=== PATIENT | male | born 1970 | race Caucasian/White ===

== ENCOUNTER 2018-09-03 07:43 | Emergency (ER) | payer OTHER ==
--- NOTE | 2018-09-03 08:20 | RADIOLOGY REPORT (SQ) ---
EXAM DESCRIPTION: CHEST SINGLE VIEW COMPLETED DATE/TIME: 09/03/2018 8:00 am REASON FOR STUDY: syncope and fall COMPARISON: None. EXAM PARAMETERS: NUMBER OF VIEWS: One view. TECHNIQUE: Single frontal radiographic view of the chest acquired. RADIATION DOSE: NA LIMITATIONS: None. FINDINGS: LUNGS AND PLEURA: Mild basilar atelectasis/ scarring. No opacities, masses or pneumothora x. No pleural effusion. MEDIASTINUM AND HILAR STRUCTURES: No masses. Contour normal. HEART AND VASCULAR STRUCTURES: Heart normal in size. Normal vasculature. BONES: No acute findings. HARDWARE: None in the chest. OTHER: No other significant finding. IMPRESSION: NO ACUTE RADIOGRAPHIC FINDING IN THE CHEST. TECHNICAL DOCUMENTATION: JOB ID: [id number] [employer]- All Rights Reserved Reading location - IP/workstation name: [email or web address]
[2018-09-03 08:21] LABS: HEMATOCRIT 31.8 % (37.9-51.0); MEAN CORPUSCULAR HEMOGLOBIN 36.8 pg (27.0-33.4); MEAN CORPUSCULAR HGB CONC 34.5 g/dL (32.0-36.0); MEAN CORPUSCULAR VOLUME 107 fl (80-97); RED BLOOD COUNT 2.98 10^6/uL (4.35-5.55); RED CELL DISTRIBUTION WIDTH 14.8 % (11.5-14.0); WHITE BLOOD COUNT 9.9 10^3/uL (4.0-10.5)
[2018-09-03 08:24] LABS: INTERNATIONAL RATION (INR) 1.64; PROTHROMBIN TIME 20.2 SEC (11.4-15.4)
[2018-09-03 08:26] LABS: PARTIAL THROMBOPLASTIN TIME 40.2 SEC (23.5-35.8)
[2018-09-03 08:39] LABS: PLATELET COUNT 52 10^3/uL (150-450)
[2018-09-03 08:41] LABS: ABSOLUTE LYMPHOCYTES# (MANUAL) 0.5 10^3/uL (0.5-4.7); ABSOLUTE MONOCYTES # (MANUAL) 0.6 10^3/uL (0.1-1.4); ABSOLUTE NEUTROPHILS# (MANUAL) 8.8 10^3/uL (1.7-8.2); BAND NEUTROPHILS % (MANUAL) 3 % (3-5); BASOPHILS % (MANUAL) 0 % (0-2); EOSINOPHILS % (MANUAL) 0 % (0-6); LYMPHOCYTES % (MANUAL) 5 % (13-45); MONOCYTES % (MANUAL) 6 % (3-13); NUCLEATED RED BLOOD CELLS 2 /100 WBC (0); SEGMENTED NEUTROPHILS % (MAN) 86 % (42-78); TOTAL CELLS COUNTED 100
[2018-09-03 08:42] LABS: ALANINE AMINOTRANSFERASE 41 U/L (21-72); ALBUMIN 3.6 g/dL (3.5-5.0); ALKALINE PHOSPHATASE 61 U/L (38-126); ASPARTATE AMINO TRANSFERASE 172 U/L (17-59); BILIRUBIN,DIRECT 11.1 mg/dL (0.0-0.4); BILIRUBIN,TOTAL 12.5 mg/dL (0.2-1.3); BLOOD UREA NITROGEN 46 mg/dL (7-20); CALCIUM 7.3 mg/dL (8.4-10.2); GLUCOSE 68 mg/dL (75-110); LIPASE 730.1 U/L (23-300); POTASSIUM 3.3 mmol/L (3.6-5.0); TOTAL PROTEIN 6.9 g/dL (6.3-8.2)
[2018-09-03 08:46] LABS: ANISOCYTOSIS SLIGHT; PLATELET COMMENT DECREASED; TOXIC GRANULATION 1+; TOXIC VACUOLATION PRESENT
[2018-09-03 08:49] LABS: CARBON DIOXIDE 12 mmol/L (22-30); CHLORIDE 83 mmol/L (98-107); SODIUM 129.5 mmol/L (137-145)
[2018-09-03 08:51] LABS: ACETAMINOPHEN < 10 ug/mL (10-30); ALCOHOL < 10 mg/dL (NONE DETECTED); ANION GAP 35 (5-19)
--- NOTE | 2018-09-03 08:58 | RADIOLOGY REPORT (SQ) ---
EXAM DESCRIPTION: CT CERVICAL SPINE WITHOUT COMPLETED DATE/TIME: 09/03/2018 8:43 am REASON FOR STUDY: fall COMPARISON: None. TECHNIQUE: Axial images acquired through the cervical spine without intravenous contrast. Images re viewed with lung, soft tissue and bone windows. Reconstructed coronal and sagittal MPR images review ed. Images stored on PACS. All CT scanners at this facility use dose modulation, iterative reconstruction, and/or weight based d osing when appropriate to reduce radiation dose to as low as reasonably achievable (ALARA). [facility]: Dose Right [facility]: CareDose [facility]: Dose Right [facility]: Teradose 4D [facility]: Smart [employer] RADIATION DOSE: CT Rad equipment meets quality standard of care and radiation dose reduction techniq ues were employed. CTDIvol: 20.4 mGy. DLP: 384 mGy-cm. mGy. LIMITATIONS: None. FINDINGS: ALIGNMENT: Anatomic. MINERALIZATION: Normal. VERTEBRAL BODIES: No fractures or dislocation. DISCS: Mild disc space narrowing and small osteophytes in the lower cervical spine. FACETS, LATERAL MASSES, POSTERIOR ELEMENTS: Mild facet arthropathy. No fractures. No dislocation. No acute findings. HARDWARE: None in the spine. VISUALIZED RIBS: No fractures. LUNG APICES AND SOFT TISSUES: No significant or acute findings. OTHER: No other significant finding. IMPRESSION: NO ACUTE OR SIGNIFICANT FINDINGS IN THE CERVICAL SPINE. TECHNICAL DOCUMENTATION: JOB ID: [id number] Quality ID # [id number]: Final reports with documentation of one or more dose reduction techniques (e.g., Au tomated exposure control, adjustment of the mA and/or kV according to patient size, use of iterative reconstruction technique) 2010 [employer]- All Rights Reserved Reading location - IP/workstation name: [email or web address]
--- NOTE | 2018-09-03 09:03 | RADIOLOGY REPORT (SQ) ---
EXAM DESCRIPTION: CT CHEST WITHOUT COMPLETED DATE/TIME: 09/03/2018 8:43 am REASON FOR STUDY: fall COMPARISON: None. TECHNIQUE: CT scan performed of the chest without intravenous contrast. Images reviewed with lung, soft tissue and bone windows. Reconstructed coronal and sagittal MPR images reviewed. All images st ored on PACS. All CT scanners at this facility use dose modulation, iterative reconstruction, and/or weight based d osing when appropriate to reduce radiation dose to as low as reasonably achievable (ALARA). [facility]: Dose Right [facility]: CareDose [facility]: Dose Right [facility]: Teradose 4D [facility]: [email or web address] RADIATION DOSE: CT Rad equipment meets quality standard of care and radiation dose reduction techniq ues were employed. CTDIvol: 14.4 mGy. DLP: 522 mGy-cm. mGy. LIMITATIONS: Mild motion artifact. FINDINGS: LUNGS AND PLEURA: Scattered linear areas of atelectasis. Small focal ground-glass opaciti es in the anterior left upper lobe (axial series 4, image 20 and image 25). No pleural effusion. No pneumothorax. HILAR AND MEDIASTINAL STRUCTURES: No identified masses or abnormal nodes. No obvious aneurysm. HEART AND VASCULAR STRUCTURES: No aneurysm. No pericardial effusion. UPPER ABDOMEN: Marked fatty infiltration of the liver. . Limited exam. THYROID AND OTHER SOFT TISSUES: No masses. No adenopathy. BONES: No significant finding. HARDWARE: None in the chest. OTHER: No other significant findings. IMPRESSION: 1. SCATTERED AREAS OF ATELECTASIS. SMALL FOCAL GROUND-GLASS OPACITIES IN THE ANTERIOR LEFT UPPER LOB E. THESE COULD REPRESENT AREAS OF FOCAL CONTUSION VERSUS INFLAMMATORY OR INFECTIOUS ETIOLOGY. 2. MARKED FATTY INFILTRATION OF THE LIVER. 3. NO OTHER SIGNIFICANT FINDINGS. MILD MOTION ARTIFACT COULD OBSCURE SUBTLE FRACTURES. TECHNICAL DOCUMENTATION: JOB ID: [id number] Quality ID # [id number]: Final reports with documentation of one or more dose reduction techniques (e.g., Au tomated exposure control, adjustment of the mA and/or kV according to patient size, use of iterative reconstruction technique) 2010 [employer]- All Rights Reserved Reading location - IP/workstation name: [email or web address]
--- NOTE | 2018-09-03 09:59 | ER Document Report ---
ED General - General Chief Complaint: Altered Mental Status Stated Complaint: VOMITING Time Seen by Provider: 09/03/18 07:47 - HPI Patient complains to provider of: Confusion Onset: Other - 48-year-old man that presents for evaluation of confusing as well as seizures and yellowing of the eyes. His notes that she found him this morning on the ground in her living room. She had not seen him since early last night. She notes that he is a long-term drinker has been very confused with worsening yellowing of his eyes over the last month. She notes his abdomen is also become rounder. He vomits almost daily, drinks a substantial amount of vodka. He is never been seen for any of these problems in the past and does not have any known diagnosis at this time but has not seen a doctor in many years. Nothing is ever happened like this before. - Related Data Allergies/Adverse Reactions: No Known Allergies Allergy (Verified 09/03/18 07:58) Past Medical History - General Information source: Patient, Relative, Emergency Med Personnel Cannot obtain history due to: Altered mental status - Social History Smoking Status: Current Every Day Smoker Frequency of alcohol use: Heavy Drug Abuse: None Lives with: Family Family History: None Review of Systems - Review of Systems -: Yes All other systems reviewed and negative Physical Exam - Vital signs Vitals: Temp Resp BP Pulse Ox 97.7 F 30 H 103/56 L 96 09/03/18 07:47 09/03/18 07:47 09/03/18 07:47 09/03/18 07:47 - General General appearance: Alert, Anxious In distress: Mild - HEENT Head: Normocephalic Eyes: Scleral icterus Conjunctiva: Normal Cornea: Normal Extraocular movements intact: Yes - Respiratory Respiratory status: Tachypnea Chest status: Nontender Breath sounds: Rhonchi Chest palpation: Normal - Cardiovascular Rhythm: Regular Heart sounds: Normal auscultation Murmur: No - Abdominal Inspection: Other - Rounded obese abdomen Distension: Fluid wave Tenderness: Tender Organomegaly: No organomegaly - Back Back: Normal - Extremities General upper extremity: Normal inspection, Nontender, Normal strength, Normal temperature General lower extremity: Normal inspection, Nontender, Normal strength, Normal temperature - Neurological Cognition: Confused, Inattentive, Short term memory loss Orientation: Disoriented to person, Disoriented to place, Disoriented to events Lyndsey Coma Scale Eye Opening: Spontaneous Lyndsey Coma Scale Verbal: Confused [place] Coma Scale Motor: Obeys Commands Lyndsey Coma Scale Total: 14 Speech: Normal Cranial nerves: Normal Cerebellar coordination: Normal Motor strength normal: LUE, RUE, LLE, RLE - Psychological Associated symptoms: Irritable Course - Re-evaluation Re-evalutation: Here is a 48-year-old man who presents for what appears to be new onset liver failure. He is a known horrible alcoholic and was found confused today. On examination he is tachypneic, has fallen and hit his head recently, has scattered bruises all over his body. He is got scattered ecchymoses suggesting a coagulopathy, he is confused does demonstrate marked confusion with yellowing of the eyes. Because of the concern for his fall and trauma to the head with coagulopathy will obtain CT of the head as well as cervical spine. We will plan to obtain broad blood work including LFTs, CBC ammonia as well as lactate. We will obtain chest x-ray as well as this patient is tachypneic. Chest x-ray does not demonstrate any obvious large parapneumonic effusion or pleural effusion on the right side, patient's LFTs show a remarkable elevation in his bilirubin, his INR is elevated as well he does demonstrate a macrocytic anemia consistent with his known alcoholism. His renal function demonstrates a creatinine of nearly 6 and his BUN is markedly elevated. Currently his meld score is a 36. Because of what appears to be acute on chronic liver failure have contacted [facility] transfer center spoke to on-call systems accountant who notes that this patient would benefit from transfer to a liver center. She notes that he likely has acute on chronic liver failure and that this may be a result of SBP though he has not had anything formally diagnosed in the past she would recommend treatment presumptively for SBP. They referred to a local center as the emergency room is having difficulty in their volumes suggested attempting to transfer to a closer facility. Contacted [facility] spoke to on-call hospitalist who agrees to accept this patient in transport to their center for consideration of further management and stabilization. Patient to be transported to their facility for further management stabilization , he was given antibiotics as well as fluids for his elevated lactate and presumptive SBP. This patient's hemodynamics improved after administration of fluids and antibiotics. His lactate was elevated to 5, repeat this was downtrending. His mental status remained markedly altered, he however was able to breathe spontaneously and follow directions not requiring any immediate intervention such as intubation or airway stabilization. Because of his issues we will continue to monitor emergency department to appropriately transported. At the time of transport the patient did demonstrate tachycardia but normal blood pressure, he had responded well to fluids and antibiotics. Deferred administration of any other intervention at this time given her limited ability to dialyze or otherwise intervene on this patient. - Vital Signs Vital signs: Temp Pulse Resp BP Pulse Ox 98.9 F 31 H 134/77 H 87 L 09/03/18 15:37 09/03/18 15:37 09/03/18 15:37 09/03/18 14:51 - Laboratory Result Diagrams: 09/03/18 07:45 09/03/18 07:45 Laboratory results interpreted by me: 09/03/18 09/03/18 09/03/18 07:45 07:45 07:45 RBC 2.98 L Hgb 11.0 L Hct 31.8 L MCV 107 H MCH 36.8 H RDW 14.8 H Plt Count 52 L Seg Neuts % (Manual) 86 H Lymphocytes % (Manual) 5 L Abs Neuts (Manual) 8.8 H PT 20.2 H APTT 40.2 H Sodium 129.5 L Potassium 3.3 L Chloride 83 L Carbon Dioxide 12 L Anion Gap 35 H BUN 46 H Creatinine 5.58 H Est GFR ( Amer) 13 L Est GFR (Non-Af Amer) 11 L Glucose 68 L Lactic Acid Calcium 7.3 L Total Bilirubin 12.5 H Direct Bilirubin 11.1 H AST 172 H NT-Pro-B Natriuret Pep Lipase 730.1 H Acetaminophen < 10 L 09/03/18 09/03/18 07:45 07:45 RBC Hgb Hct MCV MCH RDW Plt Count Seg Neuts % (Manual) Lymphocytes % (Manual) Abs Neuts (Manual) PT APTT Sodium Potassium Chloride Carbon Dioxide Anion Gap BUN Creatinine Est GFR ( Amer) Est GFR (Non-Af Amer) Glucose Lactic Acid 5.0 H Calcium Total Bilirubin Direct Bilirubin AST NT-Pro-B Natriuret Pep 3590 H Lipase Acetaminophen Critical Care Note - Critical Care Note Total time excluding time spent on procedures (mins): 35 Discharge - Discharge Clinical Impression: Alcoholism, Confusion Liver failure Qualifiers: Liver failure chronicity: acute Hepatic coma status: without hepatic coma Qualified Code(s): K72.00 - Acute and subacute hepatic failure without coma Renal failure Qualifiers: Renal failure chronicity: acute on chronic Acute renal failure type: unspecified Chronic kidney disease stage: unspecified stage Qualified Code(s): N17.9 - Acute kidney failure, unspecified Falls Qualifiers: Encounter type: initial encounter Qualified Code(s): W19.XXXA - Unspecified fall, initial encounter Condition: Stable Disposition: [facility]
--- NOTE | 2018-09-03 10:56 | RADIOLOGY REPORT (SQ) ---
EXAM DESCRIPTION: U/S ABDOMEN COMPLETE W/O DOP COMPLETED DATE/TIME: 09/03/2018 10:42 am REASON FOR STUDY: elevated lipase, T bili and renal failure COMPARISON: None. TECHNIQUE: Dynamic and static grayscale images acquired of the abdomen and recorded on PACS. Christineo lexi selected color Doppler and spectral images recorded. LIMITATIONS: None. FINDINGS: PANCREAS: No masses. Visualized pancreatic duct normal caliber. LIVER: Echotexture is coarse with increased echogenicity consistent with fatty infiltration. LIVER VASCULATURE: Normal directional flow of the main portal vein and hepatic veins. GALLBLADDER: No stones. Normal wall thickness. No pericholecystic fluid. ULTRASOUND-DETECTED NUGENT'S SIGN: Negative. INTRAHEPATIC DUCTS AND COMMON DUCT: CBD and intrahepatic ducts normal caliber. No filling defects. INFERIOR VENA CAVA: Normal flow. AORTA: No aneurysm. RIGHT KIDNEY: Normal size. Normal echogenicity. No solid or suspicious masses. No hydronephrosis. No calcifications. LEFT KIDNEY: Normal size. Normal echogenicity. No solid or suspicious masses. No hydronephrosis. No calcifications. SPLEEN:Normal size. No solid masses. PERITONEAL AND PLEURAL SPACES: No ascites or effusions. OTHER: No other significant finding. IMPRESSION: FATTY LIVER. NO OTHER SIGNIFICANT FINDING. TECHNICAL DOCUMENTATION: JOB ID: [id number] [employer]- All Rights Reserved Reading location - IP/workstation name: [email or web address]
[2018-09-03] MEDS ORDERED: NORMAL SALINE 1000 ML 1,000 ML IV ONE (10:59)
[2018-09-03] MEDS ORDERED: CEFTRIAXONE INJ 1000 MG VIAL IV ONE (12:21)
[2018-09-03 15:39] VITALS: BP 134/77
[2018-09-05 04:37] LABS: HEPATITIS A AB IGM Negative (Negative); HEPATITIS B CORE AB IGM Negative (Negative); HEPATITS B SURFACE ANTIGEN Negative (Negative)
[2018-09-05 07:11] LABS: HEPATITIS C VIRUS ANTIBODY <0.1 s/co ratio (0.0-0.9)
--- NOTE | 2018-09-05 07:40 | EKG REPORT ---
SEVERITY:- ABNORMAL ECG - LIKELY SINUS TACHYCARDIA. BORDERLINE T ABNORMALITIES, INFERIOR LEADS BORDERLINE PROLONGED QT INTERVAL : Confirmed by: Jared Phillips MD 05-Sep-2018 07:39:45
== END 2018-09-03 15:50 | disposition short-term general hospital (02) ==
LOC: ER 07:43
DX: K72.00 Acute and subacute hepatic failure without coma (principal); N17.9 Acute kidney failure, unspecified; F10.20 Alcohol dependence, uncomplicated; R41.0 Disorientation, unspecified; F17.200 Nicotine dependence, unspecified, uncomplicated
CPT/HCPCS: 93005; 99291; 96361; 96365; 36415; 87040; 80307 ×2; 82140; 83690; 85025; 85610; 85730; 86592; 80053; 83605; 80074; 83880; 71045; 76700; 71250; 72125; 93010; J0696; J7030